=== PATIENT | male | born 1995 | race African-American/Black ===

== ENCOUNTER 2016-10-25 00:37 | Emergency (ER) | payer MEDICAID ==
[~2016-10-25] VITALS: Ht 190.5 cm; Wt 88.6 kg
[2016-10-25 00:47] VITALS: Ht 190.5 cm; Wt 88.6 kg
[2016-10-25] MEDS ORDERED: METHYLPREDNISOLONE 125 MG INJ IM STA (01:21)
[2016-10-25] MEDS ORDERED: ALBUTEROL 0.5% (NEB) 2.5 MG/0.5 ML AMP INH STA (01:21)
[2016-10-25] MEDS ORDERED: IPRATROPIUM (NEB) 0.5 MG/2.5 ML AMP NEB STA (01:21)
--- NOTE | 2016-10-25 01:47 | ERD ---
ER Documentation Chief Complaint Date/Time DATE: 10/25/16 TIME: 01:45 Chief Complaint PT C/O SOB SINCE YESTERDAY, RAN OUT OF ALBUTEROL, +WHEEZES HPI 21-year-old male presents here in emergency department for complaints of cough and wheezing started yesterday, ran out of his inhaler. Patient has history of asthma. Patient has been having dry cough, does not cough up any phlegm or blood. Patient denies any chest pain or palpitations. Patient denies any fever or chills. Patient denies any sick contacts. Patient denies any sore throat or ear pain. ROS All systems reviewed and are negative except as per history of present illness. Medications Home Meds Active Scripts Prednisone* (Prednisone*) 50 Mg Tablet, 50 MG PO DAILY for 5 Days, TAB Prov:ZOFIA LEBRON NP 10/25/16 Cetirizine Hcl* (Zyrtec*) 10 Mg Capsule, 10 MG PO DAILY, #30 TAB.CHEW Prov:ZOFIA LEBRON NP 10/25/16 Jvsmlcsshna-R-Oozjvmigvg Hb* (Guaifenesin* DM Syrup) 120 Ml Syrup, 10 ML PO Q4H Y for COUGH, #120 ML Prov:ZOFIA LEBRON NP 10/25/16 Albuterol Sulfate* (Proair HFA*) 8.5 Gm Hfa.aer.ad, 2 PUFF INH Q4H Y for WHEEZING AND SOB, #1 INHALER Prov:ZOFIA LEBRON NP 10/25/16 Reported Medications [none] Unknown Strength No Conflict Check 10/25/16 Allergies Allergies: Coded Allergies: No Known Allergy (Unverified , 10/25/16) PMhx/Soc History of Surgery: Yes (clavicle, left orbital sx) Anesthesia Reaction: No Hx Neurological Disorder: No Hx Respiratory Disorders: Yes (asthma) Hx Cardiac Disorders: No Hx Psychiatric Problems: No Hx Miscellaneous Medical Probl: No Hx Alcohol Use: No Hx Substance Use: No Hx Tobacco Use: No FmHx Family History: No coronary disease, No diabetes, No other Physical Exam Vitals Vital Signs Date Time Temp Pulse Resp B/P Pulse Ox O2 Delivery O2 Flow Rate FiO2 10/25/16 01:38 87 18 97 21 10/25/16 00:47 97.9 81 20 130/81 98 Physical Exam GENERAL: The patient is well developed and appropriate for usual state of health, in no apparent distress. CHEST: Diffuse wheezing bilaterally. There are no rales, crackles or rhonchi. HEART: Regular rate and rhythm. No murmurs, clicks, rubs or gallops. No S3 or S4. ABDOMEN: Soft, nontender and nondistended. Good bowel sounds. No rebound or guarding. No gross peritonitis. No gross organomegaly or masses. No Driscoll sign or McBurney point tenderness. BACK: No midline or flank tenderness. EXTREMITIES: Equal pulses bilaterally. There is no peripheral clubbing, cyanosis or edema. No focal swelling or erythema. Full range of motion. Grossly neurovascularly intact. NEURO: Alert and oriented. Cranial nerves 2-12 intact. Motor strength in all 4 extremities with 5/5 strength. Sensation grossly intact. Normal speech and gait. SKIN: There is no apparent rash or petechia. The skin is warm and dry. HEMATOLOGIC AND LYMPHATIC: There is no evidence of excessive bruising or lymphedema. No gross cervical, axillary, or inguinal lymphadenopathy. Results 24 hrs Current Medications Medications (Trade) Dose Ordered Sig/Lee Route PRN Reason Start Time Stop Time Status Last Admin Dose Admin Ipratropium [place] (Atrovent 0.02% (Neb)) 0.5 mg ONCE STAT NEB 10/25/16 01:21 10/25/16 01:23 DC 10/25/16 01:33 Albuterol (Proventil 0.5% (Neb)) 10 mg ONCE STAT INH 10/25/16 01:21 10/25/16 01:23 DC 10/25/16 01:33 Methylprednisolone Sodium Succinate (Solu-Medrol) 125 mg ONCE STAT IM 10/25/16 01:21 10/25/16 01:23 DC 10/25/16 01:36 Breathing treatment of albuterol and Atrovent was given here in emergency department, after treatment, patient's lungs sounds are clear and patient's oxygenation is better. Patient verbalized feeling much better. Solu-Medrol IM injection was given here in emergency department together with a breathing treatment. Procedures/MDM Medical Decision Making: Patient symptoms are most likely consistent with every bronchitis with acute asthma exacerbation, which viral in origin. There is low suspicion for Pneumonia at this time since patients lungs sounds are clear, patient O2 saturation is normal and patient doesnt show any respiratory distress. Radiology exams not indicated at this time. There is low suspicion for other cardiopulmonary emergencies at this time such as CHF, Pulmonary Embolism, Pneumothorax, Aortic Aneurysm or any other cardiopulmonary emergencies at this time. There is low suspicion for sepsis. Patient appears well and is hemodynamically stable. Patient does not have any fever. Disposition: Home. Condition: Stable Prescriptions: Albuterol guaifenesin DM Zyrtec prednisone Instructions: Patient is advised to take medications as prescribed. Patient is advised to rest. Patient advised to increase fluid intake, do humidifier at home and if possible, do salt water gargles. Patient is advised that if symptoms are worse, shortness of breath, uncontrolled fever, stridor, vomiting, worst signs and symptoms to return to emergency department immediately. Otherwise, patient is advised to follow up with primary doctor in 5-7 days. Departure Diagnosis: Primary Impression: Acute asthma exacerbation Asthma severity: unspecified severity Qualified Code: J45.901 - Asthma with acute exacerbation, unspecified asthma severity Additional Impression: Acute bronchitis Bronchitis organism: unspecified organism Qualified Code: J20.9 - Acute bronchitis, unspecified organism Condition: Stable Patient Instructions: Bronchitis With Wheezing (Adult) Additional Instructions: Patient is advised to take medications as prescribed. Patient is advised to rest. Patient advised to increase fluid intake, do humidifier at home and if possible, do salt water gargles. Patient is advised that if symptoms are worse, shortness of breath, uncontrolled fever, stridor, vomiting, worst signs and symptoms to return to emergency department immediately. Otherwise, patient is advised to follow up with primary doctor in 5-7 days. ZOFIA LEBRON NP October 25, 2016 01:47
[2016-10-25] MEDS ORDERED: GUAI120S26 PO (02:46)
[2016-10-25] MEDS ORDERED: ALBU8.5H3 INH (02:46)
[2016-10-25] MEDS ORDERED: CETI10CA PO (02:46)
[2016-10-25] MEDS ORDERED: PRED50TA PO (02:46)
== END 2016-10-25 02:54 | disposition home or self-care (01) ==
LOC: FTE 00:37
DX: J45.901 Unspecified asthma with (acute) exacerbation (principal); J20.9 Acute bronchitis, unspecified
CPT/HCPCS: 94644; 96372; J2930; Z7502; Z7610